=== PATIENT | female | born 1945 | race Caucasian/White ===

== ENCOUNTER 2023-08-18 14:13 | Outpatient (CLI) | payer OTHER, SELFPAY | END 2023-08-18 14:14 | disposition home or self-care (01) | PROVIDERS: PCP Emergency Medicine; Visit Provider Emergency Medicine | DX: Z00.00 Encounter for general adult medical examination without abnormal findings (principal); R03.0 Elevated blood-pressure reading, without diagnosis of hypertension; R21 Rash and other nonspecific skin eruption; Z13.6 Encounter for screening for cardiovascular disorders | CPT/HCPCS: 80053; 80061; 86140 ==

== ENCOUNTER 2023-11-02 14:35 | Outpatient (CLI) | payer OTHER, SELFPAY ==
--- NOTE | 2023-11-02 14:40 | CRLHL7_ITS ---
For Patients: As a result of the Century Cures Act, medical imaging exams and procedure reports are released immediately into your electronic medical record. You may view this report before your referring provider. If you have questions, please contact your health care provider. BILATERAL SCREENING MAMMOGRAM WITH COMPUTER-AIDED DETECTION AND TOMOSYNTHESIS TECHNIQUE: CC and MLO views were obtained. These mammographic images have been obtained using full-field digital technique. These mammographic images were interpreted with the benefit of computer-aided detection. Breast Tomosynthesis was used in this interpretation. Also BILATERAL 2D XCCL. Difficult positioning. COMPARISON FILM: New baseline, priors 10+ years ago. FINDINGS: The breasts are almost entirely fatty IMPRESSION: There is no radiographic evidence for malignancy. ASSESSMENT: BI-RADS Category 1: Negative RECOMMENDATION: Routine screening mammogram in 1 year. A lay language report of this examination will be provided to the patient. Allan Nunn M.D. Diagnostic Radiologist [email or web address] bM/Dictated by: Allan Nunn MD @ 11/03/2023 8:27:00 AM (Electronically Signed)
--- NOTE | 2023-11-02 15:00 | CRLHL7_ITS ---
For Patients: As a result of the Century Cures Act, medical imaging exams and procedure reports are released immediately into your electronic medical record. You may view this report before your referring provider. If you have questions, please contact your health care provider. DXA BONE MINERAL DENSITY STUDY Current height (in): 64. Weight (lb): 188. Menopause age: 42. Ethnicity: White. 1. Have you had a previous hip or vertebral fracture? No. 2. Have you had any fractures during your adult life which did not result from significant trauma (e.g., auto accident)? No. 3. Did either of your parents have a hip fracture? No. 4. Do you smoke? No. 5. Have you ever taken Glucocorticoids? No. 6. Do you have rheumatoid arthritis? No. 7. Do you have secondary osteoporosis? No. 8. Do you drink 3 or more alcoholic drinks per day? No. 9. Are you being treated for osteoporosis? No. 10. Have you ever taken any of the following medications: Actonel, Evista, Fosamax, Miacalcin, Reclast, Boniva, Forteo, HRT (i.e. estrogen/hormone therapy), Protelos, Prolia, Vitamin D, Calcium, other ??? please specify. ANSWER: Yes, HRT. 11. Do you have any of the following medical conditions: Anorexia or bulimia, asthma or emphysema, end stage renal disease, hyperparathyroidism, any seizure disorders, cancer, inflammatory bowel diseases, hysterectomy, other ??? please specify. ANSWER: Yes, hysterectomy. 12. What was your maximum height (inches)? 65. 13. Do you perform weight bearing exercise regularly? No. 14. Do you regularly consume dairy products? No. 15. Do you drink caffeinated beverages? Yes. 16. At what age did your period start? 9. 17. Are you premenopausal? No. 18. How many full term pregnancies have you had? 2. 19. Have you ever missed your period for more than 6 months in a row (not including or menopause)? No. TECHNIQUE: Bone mineral density study was performed using the [employer]. FINDINGS: The results of the study expressed as bone mineral density (BMD) are as follows: Lumbar spine L1 to L4: BMD: 1.249 g/cm2. T-score: 1.8. Z-score: 4.5. Neck Left: BMD: 0.788 g/cm2. T-score: -0.5. Z-score: 1.8. Right: BMD: 0.701 g/cm2. T-score: -1.3. Z-score: 1.0 . Total Left: BMD: 1.017 g/cm2. T-score: 0.6. Z-score: 2.7. Right: BMD: 0.947 g/cm2. T-score: 0.0. Z-score: 2.1. IMPRESSION: Osteopenia. *Comparison exams done prior to 07/2019 were performed on different unit, Interface[employer]. FRAX 10-year Fracture Risk Major Osteoporotic Fracture: 12 percent Hip Fracture: 2.6 percent Reported Risk Factors: [place] () Neck BMD=0.701, BMI=32.3 Allan Nunn M.D. Diagnostic Radiologist [email or web address] OSCAR/Dictated by: Allan Nunn MD @ 11/02/2023 3:58:00 PM (Electronically Signed)
--- NOTE | 2023-11-02 15:30 | CRLHL7_ITS ---
For Patients: As a result of the Century Cures Act, medical imaging exams and procedure reports are released immediately into your electronic medical record. You may view this report before your referring provider. If you have questions, please contact your health care provider. Indication: Soft tissue mass Technique: Grayscale and color Doppler ultrasound of the left elbow soft tissues performed. Comparison: None Findings: No fluid collection or mass. No abnormal vascularity. Impression: Negative sonogram to the left anterior elbow soft tissues. No suspicious findings. Dictated by Allan Nunn MD @ 11/02/2023 3:57:20 PM (Electronically Signed)
== END 2023-11-02 14:36 | disposition home or self-care (01) ==
LOC: MAMMO 14:36
PROVIDERS: PCP Emergency Medicine; Visit Provider Emergency Medicine
DX: Z12.31 Encounter for screening mammogram for malignant neoplasm of breast (principal); Z13.820 Encounter for screening for osteoporosis; M85.89 Other specified disorders of bone density and structure, multiple sites; R22.42 Localized swelling, mass and lump, left lower limb
CPT/HCPCS: 76882; 77063; 77067; 77080

== ENCOUNTER 2023-11-09 12:11 | Outpatient (CLI) | payer OTHER, SELFPAY ==
[2023-11-09 12:45] LABS: Creatinine* 0.6 mg/dL (0.5-1.5); Estimated Glomerular Filt Rate 91 ml/min
--- NOTE | 2023-11-09 13:00 | CRLHL7_ITS ---
For Patients: As a result of the Century Cures Act, medical imaging exams and procedure reports are released immediately into your electronic medical record. You may view this report before your referring provider. If you have questions, please contact your health care provider. INDICATION Lung cancer screening. TECHNIQUE: Noncontrast CT images of the chest. COMPARISON: None. FINDINGS Solid, irregular 7 mm nodule right apex (series 2 image 21) is contiguous with small bandlike opacity extending to the pleura. Solid 3 mm nodule right lower lobe (series 2 image 42). Calcified granuloma left upper lobe. No focal consolidation, pleural effusion, or pneumothorax. Mild scarring/atelectasis left lower lobe. Diffuse bronchial wall thickening. The heart size is normal. No pericardial effusion. Coronary artery atherosclerotic calcifications. No mediastinal or hilar lymphadenopathy. Calcified hilar and mediastinal lymph nodes. 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 Small hypoattenuating lesion left hepatic lobe, incompletely characterized though potentially representing a cyst. Probable right renal cysts. Very small hiatal hernia. Multilevel thoracic spondylosis. No aggressive osseous lesions. Diffuse idiopathic skeletal hyperostosis. IMPRESSION: Irregular nodule within the apex of the right lung is contiguous with bandlike opacity and may represent scarring, though remains indeterminate. Lung-RADS category 3 probably benign. Follow-up low-dose chest CT is recommended in 6 months. Please note that all CT scans at this facility use dose modulation, iterative reconstruction, and/or weight-based dosing when appropriate to reduce radiation dose to as low as reasonably achievable. Dictated by Eh Maya MD @ 11/09/2023 3:45:17 PM (Electronically Signed)
--- NOTE | 2023-11-09 13:30 | CRLHL7_ITS ---
For Patients: As a result of the Century Cures Act, medical imaging exams and procedure reports are released immediately into your electronic medical record. You may view this report before your referring provider. If you have questions, please contact your health care provider. INDICATION: Diplopia TECHNIQUE: Non-contrast CT of the head is submitted. No comparisons. FINDINGS: The ventricles, sulci and gyri are of normal size, shape and contour. Midline structures are centrally located. No convincing evidence of intra- or extra-axial fluid collections. IMPRESSION: 1. No radiographic evidence of acute intracranial abnormalities. Please note that all CT scans at this facility use dose modulation, iterative reconstruction, and/or weight-based dosing when appropriate to reduce radiation dose to as low as reasonably achievable. Dictated by Kenton Patton MD @ 11/09/2023 4:07:37 PM (Electronically Signed)
--- NOTE | 2023-11-09 14:00 | CRLHL7_ITS ---
For Patients: As a result of the Century Cures Act, medical imaging exams and procedure reports are released immediately into your electronic medical record. You may view this report before your referring provider. If you have questions, please contact your health care provider. CLINICAL HISTORY: Recurrent diplopia. TECHNIQUE: Standard helical CT image acquisition through the head following the administration of intravenous contrast was performed. 3D and MIP reconstructions were performed at a separate workstation and permanently archived. COMPARISON: None available. FINDINGS: No intracranial proximal large vessel occlusion or flow-limiting luminal stenosis. No evidence of cerebral aneurysm. No findings to suggest an arterial-venous shunting lesion. IMPRESSION: No intracranial proximal large vessel occlusion, flow-limiting luminal stenosis, or cerebral aneurysm. Please note that all CT scans at this facility use dose modulation, iterative reconstruction, and/or weight-based dosing when appropriate to reduce radiation dose to as low as reasonably achievable. Dictated by Hardik Contreras MD @ 11/09/2023 4:41:03 PM (Electronically Signed)
--- NOTE | 2023-11-09 14:30 | CRLHL7_ITS ---
For Patients: As a result of the Century Cures Act, medical imaging exams and procedure reports are released immediately into your electronic medical record. You may view this report before your referring provider. If you have questions, please contact your health care provider. CLINICAL HISTORY: Recurrent diplopia. TECHNIQUE: Standard helical CT image acquisition through the neck was performed after intravenous contrast bolus enhancement. 3D and MIP reconstructions were performed at a separate workstation and permanently archived. COMPARISON: None available. FINDINGS: The origins of the great vessels from the aortic arch are patent. The common carotid arteries are patent. Atherosclerotic plaque involves the left carotid bifurcation and carotid bulb. No significant luminal stenoses of the proximal ICAs by NASCET criteria. The more distal cervical segments of the ICAs are patent. The origins and cervical segments of the vertebral arteries are patent. IMPRESSION: Patent cervical arterial vasculature without hemodynamically significant luminal stenosis. Please note that all CT scans at this facility use dose modulation, iterative reconstruction, and/or weight-based dosing when appropriate to reduce radiation dose to as low as reasonably achievable. Dictated by Hardik Contreras MD @ 11/09/2023 4:39:00 PM (Electronically Signed)
== END 2023-11-09 12:12 | disposition home or self-care (01) ==
LOC: CT 12:11
PROVIDERS: PCP Emergency Medicine; Visit Provider Emergency Medicine
DX: Z12.2 Encounter for screening for malignant neoplasm of respiratory organs (principal); R91.8 Other nonspecific abnormal finding of lung field; F17.210 Nicotine dependence, cigarettes, uncomplicated; H53.2 Diplopia; J32.0 Chronic maxillary sinusitis
CPT/HCPCS: 36415; 70450; 70496; 70498; 71271; 82565; Q9967

== ENCOUNTER 2024-06-21 09:47 | Outpatient (CLI) | payer OTHER, SELFPAY | END 2024-06-21 09:48 | disposition home or self-care (01) | LOC: LKVREF 15:54 | PROVIDERS: PCP Emergency Medicine; Referring Provider Emergency Medicine; Visit Provider Emergency Medicine | DX: E78.2 Mixed hyperlipidemia (principal) | CPT/HCPCS: 80048; 80061; 82465 ==